=== PATIENT | male | born 1985 ===

== ENCOUNTER 2025-05-07 07:00 | Day surgery (SDC) | payer OTHER ==
[2025-05-07] MEDS ORDERED: MIDAZOLAM HCL/PF 5 MG/ML VIAL IV ONE (08:30)
[2025-05-07] MEDS ORDERED: DIPHENHYDRAMINE HCL 50 MG/ML VIAL 1ML IV ONE (08:30)
[2025-05-07] MEDS ORDERED: fentaNYL CITRATE 50 MCG/ML AMPUL IV ONE (15:00)
== END 2025-05-07 09:50 | disposition home or self-care (01) ==
LOC: CIR.AMB 07:00 → ADM 07:00 → CIR.AMB 09:50
PROVIDERS: ATTEND Surgery
DX: K29.80 Duodenitis without bleeding (principal); K44.9 Diaphragmatic hernia without obstruction or gangrene; R10.13 Epigastric pain; E66.09 Other obesity due to excess calories; R63.4 Abnormal weight loss